=== PATIENT | female | born 1995 | race Hispanic/Latino ===

== ENCOUNTER 2017-09-20 05:14 | Emergency (ER) | payer SELFPAY ==
[2017-09-20 05:57] LABS: BASOPHILS % (AUTO) 0.6 % (0.0-5.0); EOSINOPHILS % (AUTO) 0.4 % (0.0-8.0); HEMATOCRIT 41.3 % (36-48); LYMPHOCYTES % (AUTO) 17.2 % (21.0-51.0); MEAN CORPUSCULAR HGB CONC 34.5 g/dL (32.0-36.0); MEAN CORPUSCULAR VOLUME 98.4 fL (80-100); MONOCYTES % (AUTO) 5.2 % (3.0-13.0); NEUTROPHILS % (AUTO) 76.6 % (40.0-77.0); PLATELET COUNT (AUTO) 236 K/uL (130-400); WHITE BLOOD COUNT (AUTO) 11.9 K/uL (4.8-10.8)
[2017-09-20 06:05] LABS: CREATININE 0.8 mg/dL (0.5-1.5)
[2017-09-20 06:07] LABS: APPEARANCE,URINE Clear (CLEAR); BILIRUBIN,URINE Negative (NEGATIVE); COLOR,URINE Yellow (YELLOW); GLUCOSE, URINE (UA) Negative (NEGATIVE); KETONES,URINE Negative (NEGATIVE); LEUKOCYTE ESTERASE ,URINE Negative (NEGATIVE); NITRATE,URINE Negative (NEGATIVE); OCCULT BLOOD,URINE Negative (NEGATIVE); PROTEIN,URINE Negative (NEGATIVE)
[2017-09-20 06:08] LABS: HCG,QUAL RESULT NEGATIVE (NEGATIVE)
[2017-09-20 06:11] LABS: BILIRUBIN,TOTAL 0.6 mg/dL (0.2-1.0); TOTAL PROTEIN, SERUM 7.6 g/dL (6.0-8.3)
[2017-09-20] MEDS ORDERED: HYOSCYAMINE SULFATE 0.125 MG TAB.SUBL SL ONE (07:12)
== END 2017-09-20 07:16 | disposition home or self-care (01) ==
LOC: EDH 05:14
DX: R10.84 Generalized abdominal pain (principal)
CPT/HCPCS: 36415; 80053; 81003; 81025; 82150; 83690; 85025

== ENCOUNTER 2021-03-26 03:30 | Emergency (ER) | payer OTHER, SELFPAY ==
[~2021-03-26] VITALS: Ht 152.4 cm; Wt 74.8 kg
[2021-03-26 04:29] LABS: BASOPHILS % (AUTO) 0.2 % (0.0-5.0); EOSINOPHILS % (AUTO) 0.2 % (0.0-8.0); HEMATOCRIT 44.8 % (36-48); LYMPHOCYTES % (AUTO) 4.4 % (21.0-51.0); MEAN CORPUSCULAR HGB CONC 33.7 g/dL (32.0-36.0); MEAN CORPUSCULAR VOLUME 97.8 fL (79-99); NEUTROPHILS % (AUTO) 90.8 % (40.0-77.0); PLATELET COUNT (AUTO) 209 K/uL (130-400); RED BLOOD CELL COUNT(AUTO) 4.58 MIL/uL (4.00-5.50); RED CELL DISTRIBUTION WIDTH 12.3 % (11.0-15.5); WHITE BLOOD COUNT (AUTO) 16.7 K/uL (4.8-10.8)
[2021-03-26 04:38] LABS: CREATININE 0.7 mg/dL (0.5-1.5); POTASSIUM 4.1 mmol/L (3.5-5.1)
[2021-03-26 04:45] LABS: BILIRUBIN,TOTAL 0.4 mg/dL (0.2-1.0); TOTAL PROTEIN, SERUM 7.8 g/dL (6.0-8.3)
[2021-03-26] MEDS ORDERED: ONDANSETRON 4MG INJ IVP ONE (05:00)
[2021-03-26] MEDS ORDERED: 0.9%NACL 1000ML 1,000 ML IV ONE ×2 (05:00→05:04)
[2021-03-26] MEDS ORDERED: ONDANSETRON 4MG INJ ONE (05:03)
[2021-03-26] MEDS ORDERED: LOPERAMIDE HCL 2 MG CAP PO ONE ×2 (05:08→05:30)
[2021-03-26] MEDS ORDERED: LOPE2CAP PO (05:13)
[2021-03-26] MEDS ORDERED: ONDA4TAB10 PO (05:13)
[2021-03-26 05:51] VITALS: BP 105/64
== END 2021-03-26 05:50 | disposition home or self-care (01) ==
LOC: EDH 03:30
DX: A05.9 Bacterial foodborne intoxication, unspecified (principal); Z79.899 Other long term (current) drug therapy
CPT/HCPCS: 36415; 80053; 83690; 85025; 96361; 96374; 99283; J2405; J7030